=== PATIENT | male | born 1965 | race Two or more races ===

== ENCOUNTER 2018-02-19 16:07 | Emergency (ER) | payer MEDICAID ==
[~2018-02-19] VITALS: Ht 167.6 cm; Wt 77.0 kg
[2018-02-19 16:19] VITALS: BP 125/90
== END 2018-02-19 19:13 | disposition home or self-care (01) ==
LOC: ER 16:07
DX: Z76.0 Encounter for issue of repeat prescription (principal); R03.0 Elevated blood-pressure reading, without diagnosis of hypertension; R27.0 Ataxia, unspecified; G40.909 Epilepsy, unspecified, not intractable, without status epilepticus; F12.90 Cannabis use, unspecified, uncomplicated; F17.210 Nicotine dependence, cigarettes, uncomplicated; Z87.820 Personal history of traumatic brain injury; I25.2 Old myocardial infarction; Z59.0 Homelessness
CPT/HCPCS: 99283

== ENCOUNTER 2018-02-25 21:07 | Emergency (ER) | payer MEDICAID ==
[~2018-02-25] VITALS: Ht 175.3 cm; Wt 75.0 kg
[2018-02-26 02:08] LABS: BASOPHILS % 1.1 % (0.0-2.0); EOSINOPHILS % 2.2 % (0.0-5.0); HEMATOCRIT. 45.3 % (42.0-52.0); HEMOGLOBIN. 16.2 g/dL (14.0-18.0); MEAN CORPUSCULAR HEMOGLOBIN 33.9 pg (28.0-32.0); MEAN CORPUSCULAR VOLUME 94.5 fL (80.0-94.0); MEAN PLATELET VOLUME 7.7 fl (7.4-10.4); MONOCYTES % 8.6 % (2.0-8.0); NEUTROPHILS % 43.1 % (40.0-76.0); PLATELET 219 x1000/uL (130-400); RED BLOOD CELL COUNT 4.79 mill/uL (4.7-6.1); RED CELL DISTRIBUTION WIDTH 12.6 % (11.6-14.6)
[2018-02-26 02:11] LABS: CHLORIDE 105 mEq/L (98-107)
[2018-02-26 02:16] LABS: ETHANOL BLOOD < 10 mg/dL
[2018-02-26 03:21] LABS: *AMPHETAMINES SCREEN URINE PRESUMTIVE POSITIVE (NEGATIVE); *BARBITURATES SCREEN URINE NEGATIVE (NEGATIVE); *BENZODIAZEPINES SCREEN URINE PRESUMTIVE POSITIVE (NEGATIVE)
[2018-02-26 03:22] LABS: *COCAINE SCREEN URINE NEGATIVE (NEGATIVE); CANNABINOID URINE SCREEN PRESUMTIVE POSITIVE (NEGATIVE); METHADONE URINE SCREEN NEGATIVE (NEGATIVE); OPIATES URINE SCREEN NEGATIVE (NEGATIVE); PHENCYCLIDINE URINE SCREEN NEGATIVE (NEGATIVE)
[2018-02-26] MEDS ORDERED: LEVETIRACETAM 500MG TABLET PO ONE ×2 (09:45→17:30)
[2018-02-26] MEDS ORDERED: CLONAZEPAM 1MG TABLET PO ONE ×2 (10:45→17:15)
[2018-02-26] MEDS ORDERED: LEVETIRACETAM 500MG TABLET PO SCH (21:00)
[2018-02-27] MEDS ORDERED: CLONAZEPAM 1MG TABLET PO ONE (10:30)
[2018-02-27] MEDS ORDERED: LEVETIRACETAM 500MG TABLET PO ONE (10:30)
[2018-02-28] MEDS ORDERED: CLONAZEPAM 1MG TABLET PO ONE (10:00)
[2018-02-28] MEDS ORDERED: LEVETIRACETAM 500MG TABLET PO ONE (10:15)
[2018-02-28 14:38] VITALS: BP 118/78
== END 2018-02-28 14:40 | disposition home or self-care (01) ==
LOC: ER 21:07
DX: G25.3 Myoclonus (principal); R45.851 Suicidal ideations; G40.909 Epilepsy, unspecified, not intractable, without status epilepticus; F32.9 Major depressive disorder, single episode, unspecified; F12.10 Cannabis abuse, uncomplicated; Z98.890 Other specified postprocedural states
CPT/HCPCS: 99284